=== PATIENT | male | born 1995 | race Caucasian/White ===

== ENCOUNTER 2020-02-26 03:08 | Emergency (ER) | payer OTHER ==
[~2020-02-26] VITALS: Ht 182.9 cm; Wt 68.0 kg
[~2020-02-26 03:08] MED LIST: BUPR100T4 PO; CITA10SO PO; [UNRECOGNIZED DRUG - OTHER]
--- NOTE | 2020-02-26 03:19 | NUR ---
BIB [employer] FOR MEDICAL CLEARANCE FOR BOOKING. PT C/O COUGH X10 DAYS. AFEBRILE.
--- NOTE | 2020-02-26 03:56 | NUR ---
X. RAY AT THE BED SIDE
--- NOTE | 2020-02-26 04:15 | NUR ---
PT MEDICALLY CLEARED FOR BOOKING. WRITTEN AND VERBAL DISCHARGE INSTRUCTIONS PROVIDED TO PATIENT, PT VERBALIZED UNDERSTANDING. AMBULATORY WITH STEADY GAIT. VITAL SIGNS STABLE. PT LEFT IN CUSTODY WITH [employer]
[2020-02-26 04:16] VITALS: BP 111/70
== END 2020-02-26 04:16 ==
LOC: ER 03:12
DX: J40 Bronchitis, not specified as acute or chronic (principal); Z71.89 Other specified counseling; Z98.890 Other specified postprocedural states; Z79.899 Other long term (current) drug therapy
CPT/HCPCS: 71045-TC